=== PATIENT | male | born 1980 | race Caucasian/White ===

== ENCOUNTER 2019-06-22 12:28 | Emergency (ER) | payer OTHER ==
[2019-06-22 12:59] VITALS: BP 130/91
--- NOTE | 2019-06-22 13:02 | UC ---
FLU HPI - HPI Summary HPI Summary: 38 yo male presents with abdominal complaint. 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 Yesterday he parked his car where he was not supposed to and his boss apparently threatened to fire him if this continues to happen. Pt left work and went home and became tearful, anxious, overwhelming fatigue, abdominal cramping, flatulent with loose stools, nausea, and vomiting. He did not sleep well last night due to GI symptoms and anxiety. This morning he states he feels depressed, stressed, and all he wants to do is sleep. He has not eaten today. Has not vomited today and has had no diarrhea today. He states he has a hx of depression and was on medication through his PCP 3-5 years ago, but stopped this. He lives at home with his . No firearms in the house. He denies past suicide attempt or admission. He denies wanting to hurt himself or others. Denies SI/HI at this time. Denies fever, SOB, chest pain. - History of Current Complaint Chief Complaint: UCGeneralIllness Stated Complaint: NAUSEA,VOMITING,DIARRHEA,BLOATING Time Seen by Provider: 06/22/19 13:02 Hx Obtained From: Patient Onset/Duration: Sudden Onset Severity Currently: Moderate Severity Initially: Moderate Pain Intensity: 7 Pain Scale Used: 0-10 Numeric - Allergy/Home Medications Allergies/Adverse Reactions: Allergies Allergy/AdvReac Type Severity Reaction Status Date / Time No Known Allergies Allergy Verified 06/22/19 12:59 Home Medications: Home Medications NK [No Home Medications Reported] 06/22/19 [History Confirmed 06/22/19] PMH/Surg Hx/FS Hx/Imm Hx - Additional Past Medical History Additional PMH: Depression - Surgical History Surgical History: None - Family History Known Family History: Positive: Unknown - Social History Occupation: Employed Full-time Lives: With Family Alcohol Use: Weekly Substance Use Type: None Smoking Status (MU): Never Smoked Tobacco Review of Systems All Other Systems Reviewed And Are Negative: No Constitutional: Positive: Fatigue Skin: Positive: Negative Eyes: Positive: Negative ENT: Positive: Negative Respiratory: Positive: Negative Cardiovascular: Positive: Negative Gastrointestinal: Positive: Abdominal Pain, Vomiting, Diarrhea, Nausea Genitourinary: Positive: Negative Neurovascular: Positive: Negative Musculoskeletal: Positive: Negative Neurological/Mental Status: Positive: Negative Psychological: Positive: Depressed Physical Exam - Summary Physical Exam Summary: GENERAL: NAD. Intermittently tearful. SKIN: No rashes, sores, or open wounds. HEENT: Head: AT/NC Eyes: PERRLA. EOM intact. Conjunctiva clear without inflammation or discharge. Ears: Hearing grossly normal. TMs intact, no bulging, erythema, or edema. Nose: Nasal mucosa pink and moist. NTTP maxillary and frontal sinus. Throat: Posterior oropharynx without exudates, erythema, or tonsillar enlargement. Uvula midline. NECK: Supple. Nontender. No lymphadenopathy. CHEST: CTAB. No r/r/w. No accessory muscle use. Breathing comfortably and in no distress. CV: RRR. Pulses intact. Brisk cap refill. ABDOMEN: Mild ttp generalized without point tenderness. Mild distension. Soft. No CVA tenderness. Bowel sounds present NEURO: Alert. PSYCH: Intermittently tearful. Triage Information Reviewed: Yes Vital Signs: Initial Vital Signs Temp 98.8 F 06/22/19 12:55 Pulse 88 06/22/19 12:55 Resp 18 06/22/19 12:55 BP 130/91 06/22/19 12:55 Pulse Ox 100 06/22/19 12:55 Laboratory Tests 06/22/19 13:11 Influenza A (Rapid) Negative Influenza B (Rapid) Negative Vital Signs Reviewed: Yes Flu Course/Dx - Course Course Of Treatment: POC flu negative. I had a long discussion with the pt that his GI symptoms seem related to his anxiety/depression stemming from stressful event at work, but he is still in quite a bit of abdominal discomfort and he feels his abdomen is distended - therefore I recommended further evaluation in the ED for this and also possible mental health eval. He states he does not want to do this at this time and " just wants to go home and sleep" and will go to the ED if he does not get better. He does currently seem depressed, but has a support system at home in his and does not have any weapons at home. No hx of suicide attempt. Denies wanting to hurt himself and has no plan to do so. I made him aware that without proper evaluation of his abdominal complaint, I cannot rule out a potential serious underlying cause that could result in worsening condition, , or permanent disability. He continued to refuse going to the ED now and prefers to go home with the understanding that if his condition worsens he will go to the ED at that time. - Differential Dx/Diagnosis Provider Diagnosis: Abdominal pain, Depression Discharge ED - Sign-Out/Discharge Documenting (check all that apply): Patient Departure All imaging exams completed and their final reports reviewed: No Studies - Discharge Plan Condition: Stable Disposition: HOME-RECOMMEND TO ED Forms: *Work Release Referrals: Lissett Musa MD [Primary Care Provider] - 3 Days Additional Instructions: I recommend you go to the ER now for further evaluation of your abdominal pain. - Billing Disposition and Condition Condition: STABLE Disposition: Home-Recommend to ED - Attestation Statements Provider Attestation: I was available for consult. This patient was seen by the ANDREIA. The patient was not presented to, seen by, or examined by me. -[facility]
[2019-06-22 13:23] LABS: Influenza A Molecular Negative (Negative); Influenza B Molecular Negative (Negative)
== END 2019-06-22 13:50 | disposition home health service (06) ==
LOC: UCEAST 12:28
DX: R10.9 Unspecified abdominal pain (principal); F32.9 Major depressive disorder, single episode, unspecified; R53.83 Other fatigue; R11.2 Nausea with vomiting, unspecified
CPT/HCPCS: 99212; G0463